=== PATIENT | female | born 1945 | race Caucasian/White ===

== ENCOUNTER 2021-09-12 14:08 | Day surgery (SDC) | payer OTHER ==
[~2021-09-12] VITALS: Ht 154.9 cm; Wt 87.8 kg
[2021-09-12] MEDS ORDERED: GABA100 PO (14:36)
[2021-09-12] MEDS ORDERED: AMLODIPINE BESY10 MG PO (14:36)
[2021-09-12] MEDS ORDERED: EUTHYROX100 MC1 PO (14:36)
[2021-09-12] MEDS ORDERED: Simvastatin20 MG PO (14:37)
[2021-09-12] MEDS ORDERED: METFORMIN HCL500 M3 PO (14:37)
[2021-09-12] MEDS ORDERED: FUROSEMIDE20 MG PO (14:38)
[2021-09-12] MEDS ORDERED: LOSARTAN POTASS25 M2 PO (14:38)
[2021-09-12] MEDS ORDERED: Potassium Chlo20 ME1 PO (14:39)
[2021-09-12] MEDS ORDERED: THERA-D2000 UNIT PO (14:39)
[2021-09-12] MEDS ORDERED: ASPI81CH PO (14:40)
--- NOTE | 2021-09-12 15:26 | NUR ---
09/12/21 [address] CHAPIN IN AGREEMENT TO NOT CONTINUE WITH PROCEDURE AT THIS TIME. PT OUT AT 1520.
== END 2021-09-12 15:15 | disposition home or self-care (01) ==
LOC: ORSCSDS 14:08
DX: M54.12 Radiculopathy, cervical region (principal); Z53.9 Procedure and treatment not carried out, unspecified reason
CPT/HCPCS: J1040

== ENCOUNTER → 2023-06-05 | Outpatient (CLI) | payer OTHER ==
[~2023-06-05] MED LIST: AMLODIPINE BESY10 MG PO; ASPI81CH PO; EUTHYROX100 MC1 PO; FUROSEMIDE20 MG PO; GABA100 PO; LOSARTAN POTASS25 M2 PO; METFORMIN HCL500 M3 PO; Potassium Chlo20 ME1 PO; Simvastatin20 MG PO; THERA-D2000 UNIT PO
[2023-06-08 00:08] LABS: HEMOGLOBIN A1C 7.1 % (4.8-5.6)
== END | disposition home or self-care (01) ==
LOC: LAB SHORT 15:38 → LAB 15:38
PROVIDERS: Internal Medicine
DX: E11.22 Type 2 diabetes mellitus with diabetic chronic kidney disease (principal); I10 Essential (primary) hypertension; E03.9 Hypothyroidism, unspecified; M54.12 Radiculopathy, cervical region
CPT/HCPCS: 83036; 84443

== ENCOUNTER → 2025-03-09 | Outpatient (CLI) | payer OTHER | LOC: LAB SHORT 16:50 → LAB 16:50 | DX: E03.9 Hypothyroidism, unspecified (principal); E11.69 Type 2 diabetes mellitus with other specified complication | CPT/HCPCS: 83036; 84443 ==

== ENCOUNTER → 2025-03-29 | Outpatient (CLI) | payer OTHER | LOC: LAB 07:43 → LAB SHORT 07:43 | DX: B35.1 Tinea unguium (principal); L60.2 Onychogryphosis | CPT/HCPCS: 88305; 88312 ==